=== PATIENT | male | born 1955 | race Caucasian/White ===

== ENCOUNTER → 2017-01-08 | Outpatient (CLI) | payer MEDICAID ==
[~2017-01-08] MED LIST: ASPI-621 PO; ASPI325T4 PO; ATOR10TA9 PO; ATOR80TA75 PO; CARB100C3 PO; CARV12.52 PO; HYDR-3240 PO; HYDR12.53 PO; IBUP200C PO; LOSA25TA2 PO; METO100T5 PO; NITR0.4T SL; ONDA-39 PO; OXYC-302 PO; PROM12.55 PO; SIMV5TAB5 PO; TICA90TA PO; [UNRECOGNIZED DRUG - OTHER]; [UNRECOGNIZED DRUG - REMARK]
== END | disposition home or self-care (01) ==
LOC: CVU 09:30
PROVIDERS: ATTEND Internal Medicine Cardiovascular Disease
DX: I71.2 Thoracic aortic aneurysm, without rupture (principal); I08.0 Rheumatic disorders of both mitral and aortic valves; I25.10 Atherosclerotic heart disease of native coronary artery without angina pectoris; I10 Essential (primary) hypertension; E78.5 Hyperlipidemia, unspecified; Z95.5 Presence of coronary angioplasty implant and graft
CPT/HCPCS: 93306

== ENCOUNTER → 2017-09-23 | Outpatient (CLI) | payer MEDICAID ==
[~2017-09-23] MED LIST changes: +ASPI325T17 PO; -ASPI325T4 PO; +ATOR-2 PO; -ATOR80TA75 PO; -IBUP200C PO; +IBUP200C5 PO; -ONDA-39 PO; +ONDA4TAB12 PO
== END ==
LOC: CVU 15:00
PROVIDERS: ATTEND Physician Assistant
DX: I35.0 Nonrheumatic aortic (valve) stenosis (principal); I25.10 Atherosclerotic heart disease of native coronary artery without angina pectoris; I10 Essential (primary) hypertension; E78.5 Hyperlipidemia, unspecified
CPT/HCPCS: 93306

== ENCOUNTER 2017-10-08 10:36 | Inpatient (IN) | payer MEDICAID ==
[2017-10-06 15:16] LABS: MICROSCOPIC NOT IND
[2017-10-06 15:22] LABS: BASOPHILS # (AUTO) 0.04 x10^3/uL (0-0.1); BASOPHILS % (AUTO) 1 % (0-1); EOSINOPHILS # (AUTO) 0.51 x10^3/uL (0-0.4); EOSINOPHILS % (AUTO) 8 % (1-7); HCT (SEDRATE) 46.1 % (39.2-51.8); LYMPHOCYTES # (AUTO) 2.32 x10^3/uL (1-3.4); LYMPHOCYTES % (AUTO) 37 % (22-44); MD NO; MEAN CORPUSCULAR HEMOGLOBIN 30.5 pg (27.5-34.5); MEAN CORPUSCULAR HGB CONC 33.9 g/dL (33.2-36.2); MEAN PLATELET VOLUME 8.7 fL (7.4-10.4); MONOCYTES # (AUTO) 0.68 x10^3/uL (0.2-0.8); MONOCYTES % (AUTO) 11 % (2-9); NEUTROPHILS # (AUTO) 2.71 x10^3/uL (1.8-6.8); NEUTROPHILS % (AUTO) 43 % (42-75); PLATELET COUNT 234 x10^3/uL (130-400); RED BLOOD COUNT 5.13 x10^6/uL (4.38-5.82); RED CELL DISTRIBUTION WIDTH 13.6 % (9.4-14.8)
[2017-10-06 15:25] LABS: INTERNATIONAL NORMALIZED RATIO 0.96 (0.93-1.1)
[2017-10-06 15:27] LABS: ALANINE AMINOTRANSFERASE 31 U/L (12-78); ALBUMIN 3.8 g/dL (3.4-5.0); ANION GAP 7 mmol/L (5-15); CALCIUM 8.9 mg/dL (8.5-10.1); CHLORIDE 106 mmol/L (98-107); CREATININE 1.08 mg/dL (0.7-1.3)
[2017-10-06 15:30] LABS: ALKALINE PHOSPHATASE 75 U/L (45-117); BILIRUBIN,TOTAL 0.4 mg/dL (0.2-1.0); TOTAL PROTEIN 7.8 g/dL (6.4-8.2)
[~2017-10-08] VITALS: Ht 175.3 cm; Wt 131.0 kg
[~2017-10-08 10:36] MED LIST changes: +ASPI-496 PO; +ATOR40TA PO; +BUPIVACAINE/PF 0.5% ONE; +EPINEPHRINE 1 MG/ML, 1ML ONE; +LOSA100T6 PO; +METO-95 PO; +TRANEXAMIC ACID 100 MG/ML, 10ML ONE; +TRIA1CAP3 PO; +VANCOMYCIN 1,000 MG ONE
[2017-10-08] MEDS ORDERED: LACTATED RINGERS 1,000 ML IV SCH ×2 (10:57→17:30)
[2017-10-08] MEDS ORDERED: GABAPENTIN 300 MG CAPSULE PO ONE (11:00)
[2017-10-08] MEDS ORDERED: ONDANSETRON ODT 8 MG PO ONE (11:00)
[2017-10-08] MEDS ORDERED: VANCOMYCIN PER PHARMACY MC PRN (11:00)
[2017-10-08] MEDS ORDERED: ACETAMINOPHEN 500 MG TABLET PO ONE (11:00)
[2017-10-08] MEDS ORDERED: OXYcodone IR 5MG TABLET PO ONE (11:00)
[2017-10-08 11:13] VITALS: BP 133/95
[2017-10-08] MEDS ORDERED: VANCOMYCIN 2,000 MG in SODIUM CHLORIDE 0.9% 500 ML IV ONE (11:30)
[2017-10-08] MEDS ORDERED: MIDAZOLAM 1 MG/ML, 2ML ONE (12:01)
[2017-10-08] MEDS ORDERED: FENTANYL PF 100 MCG/2ML ONE ×2 (12:01→15:55)
[2017-10-08] MEDS ORDERED: BUPIVACAINE/PF 0.5% INFIL ONE (13:52)
[2017-10-08] MEDS ORDERED: DEXAMETHASONE 4 MG/ML, 1ML ONE (14:34)
[2017-10-08] MEDS ORDERED: PROPOFOL 10 MG/ML, 20ML ONE (14:34)
[2017-10-08] MEDS ORDERED: CEFAZOLIN 1,000 MG ONE (14:34)
[2017-10-08] MEDS ORDERED: MIDAZOLAM 1 MG/ML, 2ML IV PRN (15:00)
[2017-10-08] MEDS ORDERED: hydrALAzine 20 MG/ML, 1ML IV PRN (15:00)
[2017-10-08] MEDS ORDERED: ALBUTEROL SULFATE 2.5 MG/3 ML NPPB PRN (15:00)
[2017-10-08] MEDS ORDERED: MEPERIDINE/PF 25MG/0.5ML IVPush PRN (15:00)
[2017-10-08] MEDS ORDERED: HYDROcodone/APAP 7.5-325MG/15ML UDC PO PRN (15:00)
[2017-10-08] MEDS ORDERED: METOPROLOL 1 MG/ML, 5ML IV PRN (15:00)
[2017-10-08] MEDS ORDERED: morphine SULFATE 10 MG/ML, 1ML IV PRN ×2 (15:00→17:00)
[2017-10-08] MEDS ORDERED: LABETALOL 5MG/ML, 20ML IV PRN (15:00)
[2017-10-08] MEDS ORDERED: DIAZEPAM 5 MG/ML, 2ML IVPush PRN (15:00)
[2017-10-08] MEDS ORDERED: OXYcodone 5 MG/5 ML ORAL.SOL UDC PO PRN (15:00)
[2017-10-08] MEDS ORDERED: EPHEDRINE 50 MG/ML, 1ML IVPush PRN (15:00)
[2017-10-08] MEDS ORDERED: PROMETHAZINE 25 MG/ML, 1ML IV PRN (15:00)
[2017-10-08] MEDS ORDERED: ONDANSETRON 2MG/ML, 2ML IVPush PRN (15:00)
[2017-10-08] MEDS ORDERED: PROMETHAZINE 12.5 MG SUPP PR PRN (15:00)
[2017-10-08] MEDS ORDERED: OXYcodone 5 MG/5 ML ORAL.SOL UDC ONE (15:55)
[2017-10-08] MEDS: FENTANYL PF 100 MCG/2ML IV PRN ×2 (16:01→16:20)
[2017-10-08 16:40] VITALS: BP 122/82
[2017-10-08] MEDS ORDERED: ONDANSETRON 2MG/ML, 2ML IV PRN (17:00)
[2017-10-08] MEDS ORDERED: PROMETHAZINE 25 MG/ML, 1ML IM PRN (17:00)
[2017-10-08] MEDS ORDERED: ACETAMINOPHEN 500 MG TABLET PO PRN (17:30)
[2017-10-08] MEDS ORDERED: OxyconTIN ER 10 MG TAB.ER PO PRN (17:30)
[2017-10-08] MEDS ORDERED: KETOROLAC 30 MG/1 ML IV SCH (17:30)
[2017-10-08 18:25] VITALS: BP 126/86
[2017-10-08] MEDS ORDERED: DIAZ5TAB4 PO (18:28)
[2017-10-08] MEDS ORDERED: OXYC5TAB3 PO (18:28)
[2017-10-08] MEDS ORDERED: ASPI-650 PO (18:29)
[2017-10-08] MEDS ORDERED: CEPH-368 PO (18:29)
[2017-10-08 19:32] VITALS: BP 117/78
[2017-10-08] MEDS ORDERED: ATORVASTATIN 40 MG TABLET PO SCH (21:00)
[2017-10-09] MEDS ORDERED: ASPIRIN 325 MG TABLET PO SCH (01:00)
[2017-10-09] MEDS ORDERED: METOPROLOL SUCCINATE 100 MG TAB.ER.24H PO SCH (06:00)
[2017-10-09] MEDS ORDERED: LOSARTAN 50MG TABLET PO SCH (09:00)
[2017-10-09] MEDS ORDERED: TRIAMTERENE-HCTZ 37.5/25 MG TABLET PO SCH (09:00)
== END 2017-10-08 20:33 | disposition home or self-care (01) | DRG 470 ==
LOC: ORIP 10:36 → 4NOR 16:44
PROVIDERS: ADMIT Orthopaedic Surgery Orthopaedic Surgery of the Spine; ATTEND Orthopaedic Surgery Orthopaedic Surgery of the Spine
PROC: 0SRD0J9 Replacement of Left Knee Joint with Synthetic Substitute, Cemented, Open Approach (ICD-10-PCS; principal; 2017-10-08 13:00)
DX: M17.12 Unilateral primary osteoarthritis, left knee (principal); E78.5 Hyperlipidemia, unspecified; I10 Essential (primary) hypertension; I25.2 Old myocardial infarction; Z90.49 Acquired absence of other specified parts of digestive tract; Z95.5 Presence of coronary angioplasty implant and graft; Z88.6 Allergy status to analgesic agent; Z88.8 Allergy status to other drugs, medicaments and biological substances; Z87.891 Personal history of nicotine dependence
CPT/HCPCS: 36415; 71046; 80053; 81003; 85025; 85610; 85651; 85730; 87081; 93005; C1713; J0171; J0690; J1100; J1885; J2250; J2704; J3010; J3370; J3490; Q0162; C1776; J7040; J7120